=== PATIENT | female | born 1960 | race Caucasian/White ===

== ENCOUNTER 2024-08-19 12:12 | Emergency (ER) | payer BC ==
[2024-08-19] MEDS: Acetaminophen 500 MG Tab PO ONE (12:47)
== END 2024-08-19 13:04 | disposition home or self-care (01) ==
LOC: FB.ED 12:12
DX: S60.212A Contusion of left wrist, initial encounter (principal); I10 Essential (primary) hypertension; E11.9 Type 2 diabetes mellitus without complications; Z88.8 Allergy status to other drugs, medicaments and biological substances; Z79.84 Long term (current) use of oral hypoglycemic drugs; Z79.899 Other long term (current) drug therapy; W22.8XXA Striking against or struck by other objects, initial encounter
CPT/HCPCS: 73110-RT; 99283; A9270-GY